=== PATIENT | female | born 1965 | race Caucasian/White ===

== ENCOUNTER 2019-04-14 18:15 | Observation (INO) | payer BC, MEDICARE ==
--- NOTE | 2019-04-14 18:30 | EDM.PDOC ---
ED HPI GENERAL MEDICAL PROBLEM - General Chief Complaint: General Stated Complaint: MED[facility] Time Seen by Provider: 04/14/19 18:24 Source of Information: Reports: EMS History Limitations: Reports: Altered Mental Status - History of Present Illness INITIAL COMMENTS - FREE TEXT/NARRATIVE: 53-year-old female brought in by ambulance because of decreased responsiveness. She is staying at a local hotel with her family, she was sitting by poolside and they went out to wake her up and they could not wake her up. She is not drinking. She does have several sedating medications including Ambien and 2 muscle relaxers, also takes clonazepam. She has chronic renal insufficiency due to atrophic kidneys, and she did have "medication buildup" once in the last year which gave her similar symptoms. She arrives very lethargic, respiratory rate of 7 but with nasal cannula oxygen she is not hypoxic. She was initially hypoxic when found in the chair at the hotel in the low to mid 80s per EMS. Her claims that last time this happened they hydrated her with 2 L of fluid and she got better. Onset: Unknown/Unsure Associated Symptoms: Reports: Confusion, Weakness. Denies: Nausea/Vomiting, Shortness of Breath - Related Data Allergies Allergy/AdvReac Type Severity Reaction Status Date / Time morphine Allergy Drowsiness Verified 04/14/19 19:06 Home Meds: Home Meds Carvedilol 6.25 mg PO BID 04/14/19 [History] ClonazePAM [KlonoPIN] 0.25 - 0.5 mg PO BEDTIME PRN 04/14/19 [History] Cyclobenzaprine [Flexeril] 10 mg PO TID PRN 04/14/19 [History] Escitalopram [Lexapro] 30 mg PO DAILY 04/14/19 [History] Levothyroxine 112 mcg PO DAILY 04/14/19 [History] Omeprazole 20 mg PO DAILY 04/14/19 [History] Ondansetron [Zofran Odt] 8 mg PO DAILY 04/14/19 [History] Zolpidem Tartrate 5 - 10 mg PO BEDTIME PRN 04/14/19 [History] amLODIPine Besylate [Amlodipine Besylate] 10 mg PO DAILY 04/14/19 [History] atorvaSTATin [Lipitor] 20 mg PO DAILY 04/14/19 [History] risperiDONE 1 mg PO BEDTIME 04/14/19 [History] tiZANidine [Zanaflex] 4 mg PO Q8H PRN 04/14/19 [History] Social & Family History - Tobacco Use Smoking Status *Q: Unknown Ever Smoked ED ROS GENERAL - Review of Systems Review Of Systems: Unable To Obtain (Patient herself was unable to give a review of systems, family claims she has been her normal self until today) ED EXAM, GENERAL - Physical Exam Exam: See Below Exam Limited By: Altered Mental Status General Appearance: Lethargic Eye Exam: Bilateral Eye: PERRL Head: Atraumatic Respiratory/Chest: No Respiratory Distress, Lungs Clear Cardiovascular: Regular Rate, Rhythm GI/Abdominal: Soft, Non-Tender Extremities: Pedal Edema (Symmetric 1+ lower extremity edema to the knees) Neurological: Inattentive, Slow to Respond Skin Exam: Warm, Dry Course - Vital Signs Last Recorded V/S: Last Vital Signs Temp 97.9 F 04/14/19 21:59 Pulse 73 04/14/19 21:59 Resp 12 04/14/19 21:59 BP 126/72 04/14/19 21:59 Pulse Ox 96 04/14/19 21:59 - Orders/Labs/Meds Orders: Medication Orders Acetaminophen (Tylenol) 650 mg PO Q4H PRN PRN Reason: Pain (Mild 1-3)/fever Enoxaparin Sodium (Lovenox) 30 mg SUBCUT DAILY [facility] Sodium Chloride (Normal Saline) 1,000 mls @ 125 mls/hr IV ASDIRECTED [facility] Non-Formulary Medication (Amlodipine Besylate [Amlodipine Besylate]) 10 mg PO DAILY [facility] Non-Formulary Medication (Carvedilol [Carvedilol]) 6.25 mg PO BID [facility] Non-Formulary Medication (Levothyroxine [Levothyroxine]) 112 mcg PO DAILY [facility] Ondansetron HCl (Zofran Odt) 4 mg PO Q6H PRN PRN Reason: Nausea able to take PO Labs: Laboratory Tests 04/14/19 04/14/19 04/14/19 Range/Units 18:23 18:32 18:32 WBC 5.3 (4.5-11.0) K/uL RBC 3.48 (3.30-5.50) M/uL Hgb 11.0 L (12.0-15.0) g/dL Hct 33.1 L (36.0-48.0) % MCV 95 (80-98) fL MCH 32 H (27-31) pg MCHC 33 (32-36) % Plt Count 143 L (150-400) K/uL Neut % (Auto) 69 H (36-66) % Lymph % (Auto) 17 L (24-44) % [place] % (Auto) 11 H (2-6) % Eos % (Auto) 2 (2-4) % Baso % (Auto) 0 (0-1) % Sodium 134 L (140-148) mmol/L Potassium 4.8 (3.6-5.2) mmol/L Chloride 101 (100-108) mmol/L Carbon Dioxide 27 (21-32) mmol/L Anion Gap 10.8 (5.0-14.0) mmol/L BUN 17 (7-18) mg/dL Creatinine 1.8 H (0.6-1.0) mg/dL Est Cr Clr Drug Dosing 33.06 mL/min Estimated GFR (MDRD) 29 L (>60) Glucose 93 (74-106) mg/dL Calcium 7.7 L (8.5-10.1) mg/dL Total Bilirubin 0.8 (0.2-1.0) mg/dL AST 25 (15-37) U/L ALT 22 (12-78) U/L Alkaline Phosphatase 84 (46-116) U/L Total Protein 5.2 L (6.4-8.2) g/dL Albumin 2.8 L (3.4-5.0) g/dL Globulin 2.4 (2.3-3.5) g/dL Albumin/Globulin Ratio 1.2 (1.2-2.2) Urine Color Urine Appearance Urine pH (4.5-8.0) Ur Specific [place] (1.008-1.030) Urine Protein (NEGATIVE) mg/dL Urine Glucose (UA) (NEGATIVE) mg/dL Urine Ketones (NEGATIVE) mg/dL Urine Occult Blood (NEGATIVE) Urine Nitrite (NEGATIVE) Urine Bilirubin (NEGATIVE) Urine Urobilinogen (NORMAL) mg/dL Ur Leukocyte Esterase (NEGATIVE) Urine Opiates Screen (NEGATIVE) Ur Oxycodone Screen (NEGATIVE) Urine Methadone Screen (NEGATIVE) Ur Propoxyphene Screen (NEGATIVE) Ur Barbiturates Screen (NEGATIVE) Ur Tricyclics Screen (NEGATIVE) Ur Phencyclidine Scrn (NEGATIVE) Ur Amphetamine Screen (NEGATIVE) U Methamphetamines Scrn (NEGATIVE) Urine MDMA Screen (NEGATIVE) U Benzodiazepines Scrn (NEGATIVE) U Cocaine Metab Screen (NEGATIVE) U Marijuana (THC) Screen (NEGATIVE) Ethyl Alcohol < 3 mg/dL 04/14/19 04/14/19 Range/Units 20:30 20:43 WBC (4.5-11.0) K/uL RBC (3.30-5.50) M/uL Hgb (12.0-15.0) g/dL Hct (36.0-48.0) % MCV (80-98) fL MCH (27-31) pg MCHC (32-36) % Plt Count (150-400) K/uL Neut % (Auto) (36-66) % Lymph % (Auto) (24-44) % [place] % (Auto) (2-6) % Eos % (Auto) (2-4) % Baso % (Auto) (0-1) % Sodium (140-148) mmol/L Potassium (3.6-5.2) mmol/L Chloride (100-108) mmol/L Carbon Dioxide (21-32) mmol/L Anion Gap (5.0-14.0) mmol/L BUN (7-18) mg/dL Creatinine (0.6-1.0) mg/dL Est Cr Clr Drug Dosing mL/min Estimated GFR (MDRD) (>60) Glucose (74-106) mg/dL Calcium (8.5-10.1) mg/dL Total Bilirubin (0.2-1.0) mg/dL AST (15-37) U/L ALT (12-78) U/L Alkaline Phosphatase (46-116) U/L Total Protein (6.4-8.2) g/dL Albumin (3.4-5.0) g/dL Globulin (2.3-3.5) g/dL Albumin/Globulin Ratio (1.2-2.2) Urine Color Yellow Urine Appearance Clear Urine pH 5.0 (4.5-8.0) Ur Specific [place] 1.010 (1.008-1.030) Urine Protein Negative (NEGATIVE) mg/dL Urine Glucose (UA) Normal (NEGATIVE) mg/dL Urine Ketones Negative (NEGATIVE) mg/dL Urine Occult Blood Negative (NEGATIVE) Urine Nitrite Negative (NEGATIVE) Urine Bilirubin Negative (NEGATIVE) Urine Urobilinogen Normal (NORMAL) mg/dL Ur Leukocyte Esterase Negative (NEGATIVE) Urine Opiates Screen Negative (NEGATIVE) Ur Oxycodone Screen Negative (NEGATIVE) Urine Methadone Screen Negative (NEGATIVE) Ur Propoxyphene Screen Negative (NEGATIVE) Ur Barbiturates Screen Negative (NEGATIVE) Ur Tricyclics Screen Presumptive positive H (NEGATIVE) Ur Phencyclidine Scrn Negative (NEGATIVE) Ur Amphetamine Screen Presumptive positive H (NEGATIVE) U Methamphetamines Scrn Negative (NEGATIVE) Urine MDMA Screen Negative (NEGATIVE) U Benzodiazepines Scrn Negative (NEGATIVE) U Cocaine Metab Screen Negative (NEGATIVE) U Marijuana (THC) Screen Negative (NEGATIVE) Ethyl Alcohol mg/dL Meds: Medications Generic Name Dose Route Start Last Admin Trade Name Freq PRN Reason Stop Dose Admin Acetaminophen 650 mg 04/14/19 21:57 Tylenol PO Q4H PRN Pain (Mild 1-3)/fever Enoxaparin Sodium 30 mg 04/14/19 21:57 Lovenox SUBCUT DAILY [facility] Sodium Chloride 1,000 mls @ 125 mls/hr 04/14/19 21:57 Normal Saline IV ASDIRECTED [facility] Non-Formulary Medication 10 mg 04/15/19 09:00 Amlodipine Besylate [Amlodipine Besylate] PO DAILY [facility] Non-Formulary Medication 6.25 mg 04/15/19 09:00 Carvedilol [Carvedilol] PO BID [facility] Non-Formulary Medication 112 mcg 04/15/19 09:00 Levothyroxine [Levothyroxine] PO DAILY [facility] Ondansetron HCl 4 mg 04/14/19 21:57 Zofran Odt PO Q6H PRN Nausea able to take PO Discontinued Medications Generic Name Dose Route Start Last Admin Trade Name Freq PRN Reason Stop Dose Admin Sodium Chloride 1,000 mls @ 1,000 mls/hr 04/14/19 19:15 04/14/19 19:17 Normal Saline IV 1,000 mls/hr ASDIRECTED [facility] Administration - Re-Assessments/Exams Free Text/Narrative Re-Assessment/Exam: 04/14/19 19:55 An IV was started and patient was hydrated with normal saline. CBC, CMP, EtOH were obtained. EtOH was 0, CBC normal, CMP did reveal renal insufficiency with a GFR of only 27. Patient started to become more awake and communicating with the family but still fell asleep very easily. A CT the head was obtained which showed no acute findings. 04/14/19 20:45 Patient continued to slowly improve, after 3 hours was able to ambulate to the bathroom with assistance but when she laid back down she tended to fall asleep and become hypoxic. I felt it would be best to have her in for observation overnight where she can get oxygen support and neuro checks. I consulted Roslyn [place] of the hospitalist service to assess for admission. A UA was obtained for urine drug screen and UA. Departure - Departure Time of Disposition: 21:48 Disposition: Admitted As Inpatient 64 Condition: Fair Clinical Impression: Hypoxia Altered mental status Qualifiers: Altered mental status type: transient alteration of awareness Qualified Code(s) : R40.4 - Transient alteration of awareness - Discharge Information
--- NOTE | 2019-04-14 19:08 | CRLCT ---
INDICATION: Change in mental status TECHNIQUE: CT head without contrast. COMPARISON: None FINDINGS: CSF spaces: Within normal limits for age. Brain parenchyma: The alexander-white differentiation is normal. No sign of mass, hemorrhage, or midline shift. Skull base and calvarium: The visualized paranasal sinuses and mastoid air cells demonstrate no acute or significant findings. The visualized orbits are grossly unremarkable. No skull fractures. IMPRESSION: Unremarkable noncontrast head CT. Dictated by Camron Soto MD @ 04/14/2019 7:07:22 PM Please note that all CT scans at this facility use dose modulation, iterative reconstruction, and/or weight-based dosing when appropriate to reduce radiation dose to as low as reasonably achievable. Dictated by: Camron Soto MD @ 04/14/2019 19:07:28 (Electronically Signed)
[2019-04-14] MEDS ORDERED: Sodium Chloride 0.9% 1,000 ML IV SCH ×3 (19:15→23:30)
--- NOTE | 2019-04-14 21:35 | PCM.HP ---
H&P History of Present Illness - General Date of Service: 04/14/19 Admit Problem/Dx: Admission Diagnosis/Problem Admission Diagnosis/Problem Altered mental status Source of Information: Patient (unable to give history of present illness), Family ( Kash) History Limitations: Reports: Altered Mental Status - History of Present Illness Initial Comments - Free Text/Narative: 53-year-old female brought in by ambulance because of decreased responsiveness. She is staying at a local hotel with her family, she was sitting by pool side and they went out to wake her up and they could not wake her up. She is not drinking. She does have several sedating medications including Ambien and 2 muscle relaxers, also takes clonazepam. She has chronic renal insufficiency due to atrophic kidneys, and she did have "medication buildup" once in the last year which gave her similar symptoms. She arrives very lethargic, respiratory rate of 7 but with nasal cannula oxygen she is not hypoxic. She was initially hypoxic when found in the chair at the hotel in the low to mid 80s per EMS. Her claims that last time this happened they hydrated her with 2 L of fluid and she got better. 04/14/19 19:55 An IV was started and patient was hydrated with normal saline. CBC, CMP, EtOH were obtained. ETOH was 0, CBC normal, CMP did reveal renal insufficiency with a GFR of only 27. Patient started to become more awake and communicating with the family but still fell asleep very easily. A CT the head was obtained which showed no acute findings. 04/14/19 20:45 Patient continued to slowly improve, after 3 hours was able to ambulate to the bathroom with assistance but when she laid back down she tended to fall asleep and become hypoxic. I felt it would be best to have her in for observation overnight where she can get oxygen support and neuro checks. I consulted Roslyn Mckinney of the hospitalist service to assess for admission. A UA was obtained for urine drug screen and UA. 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 she is able to turn her head, but has a lot of pain in spine, and that is why she is on muscle relaxers and other medications. Onset of Symptoms: Reports: Sudden, Gradual Duration of Symptoms: Reports: Hour(s): Location: Reports: Generalized (lethergy) Quality: Reports: Same as Previous Episode (hx of similar incident due to build up of drugs in symtoms due to low functioning kidneys.) Severity: Severe Improves with: Reports: None Worsens with: Reports: None Context: Reports: Other (hx of impaired kidney function. ) Associated Symptoms: Reports: Confusion, Weakness - Related Data Allergies/Adverse Reactions: Allergies Allergy/AdvReac Type Severity Reaction Status Date / Time morphine Allergy Drowsiness Verified 04/14/19 19:06 Home Medications: Home Meds Carvedilol 6.25 mg PO BID 04/14/19 [History] ClonazePAM [KlonoPIN] 0.25 - 0.5 mg PO BEDTIME PRN 04/14/19 [History] Cyclobenzaprine [Flexeril] 10 mg PO TID PRN 04/14/19 [History] Escitalopram [Lexapro] 30 mg PO DAILY 04/14/19 [History] Levothyroxine 112 mcg PO DAILY 04/14/19 [History] Omeprazole 20 mg PO DAILY 04/14/19 [History] Ondansetron [Zofran Odt] 8 mg PO DAILY 04/14/19 [History] Zolpidem Tartrate 5 - 10 mg PO BEDTIME PRN 04/14/19 [History] amLODIPine Besylate [Amlodipine Besylate] 10 mg PO DAILY 04/14/19 [History] atorvaSTATin [Lipitor] 20 mg PO DAILY 04/14/19 [History] risperiDONE 1 mg PO BEDTIME 04/14/19 [History] tiZANidine [Zanaflex] 4 mg PO Q8H PRN 04/14/19 [History] Past Medical History Genitourinary History: Reports: Chronic Renal Insuffiency (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 she is able to turn her head, but has a lot of pain in spine, and that is why she is on muscle relaxers and other medications. 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 she is able to turn her head, but has a lot of pain in spine, and that is why she is on muscle relaxers and other medications.) Endocrine/Metabolic History: Reports: Hypoparathyroidism Oncologic (Cancer) History: Reports: Thyroid - Past Surgical History HEENT Surgical History: Reports: LASIK Female Surgical History: Reports: Section, Oophorectomy Endocrine Surgical History: Reports: Thyroidectomy Social & Family History - Tobacco Use Smoking Status *Q: Unknown Ever Smoked - Living Situation & Occupation Living situation: Reports: Occupation: Retired (lives with Kash in the [facility]. 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 reports her spine is naturally fused from C -2 down. she is able to turn her head, but has a lot of pain in spine, and that is why she is on muscle relaxers and other medications. ) Exam - Exam Exam: See Below - Vital Signs Vital Signs: Last Vital Signs Temp 37.3 C 04/14/19 18:21 Pulse 79 04/14/19 20:47 Resp 16 04/14/19 20:47 BP 103/76 04/14/19 20:47 Pulse Ox 97 04/14/19 20:47 Weight: 82.554 kg - Exam Quality Assessment: Supplemental Oxygen, DVT Prophylaxis General: Obtunded (will awake to name, rambling speech. ) HEENT: Hearing Intact ([place]al clear, tm paulino alexander. ), Nares Patent, Normal Nasal Septum, Pupils Equal, Pupils Reactive, TMs Clear, Other (mouth; tongue is dry.) Neck: Trachea Midline, Other (turns head) Lungs: Clear to Auscultation, Normal Respiratory Effort, Other (cough present) Cardiovascular: Regular Rate, Regular Rhythm, Normal S1, Normal S2 GI/Abdominal Exam: Normal Bowel Sounds, Soft, Non-Tender, No Distention, No Abnormal Bruit, No Mass (Female) Exam: Deferred Rectal (Female) Exam: Deferred Extremities: Normal Range of Motion, No Pedal Edema, Leg Pain (right lower leg with old surgical incision for ORIF with hardware of right tib/fib) Peripheral Pulses: 2+: Radial (L), Radial (R) Skin: Warm, Dry, Intact, Other (no bruising or signs of trauma) Neuro Extensive - Mental Status: Opens Eyes to Commands - Patient Data Lab Results Last 24 hrs: Laboratory Results - last 24 hr 04/14/19 04/14/19 04/14/19 Range/Units 18:23 18:32 18:32 WBC 5.3 (4.5-11.0) K/uL RBC 3.48 (3.30-5.50) M/uL Hgb 11.0 L (12.0-15.0) g/dL Hct 33.1 L (36.0-48.0) % MCV 95 (80-98) fL MCH 32 H (27-31) pg MCHC 33 (32-36) % Plt Count 143 L (150-400) K/uL Neut % (Auto) 69 H (36-66) % Lymph % (Auto) 17 L (24-44) % [place] % (Auto) 11 H (2-6) % Eos % (Auto) 2 (2-4) % Baso % (Auto) 0 (0-1) % Sodium 134 L (140-148) mmol/L Potassium 4.8 (3.6-5.2) mmol/L Chloride 101 (100-108) mmol/L Carbon Dioxide 27 (21-32) mmol/L Anion Gap 10.8 (5.0-14.0) mmol/L BUN 17 (7-18) mg/dL Creatinine 1.8 H (0.6-1.0) mg/dL Est Cr Clr Drug Dosing 33.06 mL/min Estimated GFR (MDRD) 29 L (>60) Glucose 93 (74-106) mg/dL Calcium 7.7 L (8.5-10.1) mg/dL Total Bilirubin 0.8 (0.2-1.0) mg/dL AST 25 (15-37) U/L ALT 22 (12-78) U/L Alkaline Phosphatase 84 (46-116) U/L Total Protein 5.2 L (6.4-8.2) g/dL Albumin 2.8 L (3.4-5.0) g/dL Globulin 2.4 (2.3-3.5) g/dL Albumin/Globulin Ratio 1.2 (1.2-2.2) Urine Color Urine Appearance Urine pH (4.5-8.0) Ur Specific [place] (1.008-1.030) Urine Protein (NEGATIVE) mg/dL Urine Glucose (UA) (NEGATIVE) mg/dL Urine Ketones (NEGATIVE) mg/dL Urine Occult Blood (NEGATIVE) Urine Nitrite (NEGATIVE) Urine Bilirubin (NEGATIVE) Urine Urobilinogen (NORMAL) mg/dL Ur Leukocyte Esterase (NEGATIVE) Urine Opiates Screen (NEGATIVE) Ur Oxycodone Screen (NEGATIVE) Urine Methadone Screen (NEGATIVE) Ur Propoxyphene Screen (NEGATIVE) Ur Barbiturates Screen (NEGATIVE) Ur Tricyclics Screen (NEGATIVE) Ur Phencyclidine Scrn (NEGATIVE) Ur Amphetamine Screen (NEGATIVE) U Methamphetamines Scrn (NEGATIVE) Urine MDMA Screen (NEGATIVE) U Benzodiazepines Scrn (NEGATIVE) U Cocaine Metab Screen (NEGATIVE) U Marijuana (THC) Screen (NEGATIVE) Ethyl Alcohol < 3 mg/dL 04/14/19 04/14/19 Range/Units 20:30 20:43 WBC (4.5-11.0) K/uL RBC (3.30-5.50) M/uL Hgb (12.0-15.0) g/dL Hct (36.0-48.0) % MCV (80-98) fL MCH (27-31) pg MCHC (32-36) % Plt Count (150-400) K/uL Neut % (Auto) (36-66) % Lymph % (Auto) (24-44) % [place] % (Auto) (2-6) % Eos % (Auto) (2-4) % Baso % (Auto) (0-1) % Sodium (140-148) mmol/L Potassium (3.6-5.2) mmol/L Chloride (100-108) mmol/L Carbon Dioxide (21-32) mmol/L Anion Gap (5.0-14.0) mmol/L BUN (7-18) mg/dL Creatinine (0.6-1.0) mg/dL Est Cr Clr Drug Dosing mL/min Estimated GFR (MDRD) (>60) Glucose (74-106) mg/dL Calcium (8.5-10.1) mg/dL Total Bilirubin (0.2-1.0) mg/dL AST (15-37) U/L ALT (12-78) U/L Alkaline Phosphatase (46-116) U/L Total Protein (6.4-8.2) g/dL Albumin (3.4-5.0) g/dL Globulin (2.3-3.5) g/dL Albumin/Globulin Ratio (1.2-2.2) Urine Color Yellow Urine Appearance Clear Urine pH 5.0 (4.5-8.0) Ur Specific [place] 1.010 (1.008-1.030) Urine Protein Negative (NEGATIVE) mg/dL Urine Glucose (UA) Normal (NEGATIVE) mg/dL Urine Ketones Negative (NEGATIVE) mg/dL Urine Occult Blood Negative (NEGATIVE) Urine Nitrite Negative (NEGATIVE) Urine Bilirubin Negative (NEGATIVE) Urine Urobilinogen Normal (NORMAL) mg/dL Ur Leukocyte Esterase Negative (NEGATIVE) Urine Opiates Screen Negative (NEGATIVE) Ur Oxycodone Screen Negative (NEGATIVE) Urine Methadone Screen Negative (NEGATIVE) Ur Propoxyphene Screen Negative (NEGATIVE) Ur Barbiturates Screen Negative (NEGATIVE) Ur Tricyclics Screen Presumptive positive H (NEGATIVE) Ur Phencyclidine Scrn Negative (NEGATIVE) Ur Amphetamine Screen Presumptive positive H (NEGATIVE) U Methamphetamines Scrn Negative (NEGATIVE) Urine MDMA Screen Negative (NEGATIVE) U Benzodiazepines Scrn Negative (NEGATIVE) U Cocaine Metab Screen Negative (NEGATIVE) U Marijuana (THC) Screen Negative (NEGATIVE) Ethyl Alcohol mg/dL Result Diagrams: 04/14/19 18:23 04/14/19 18:32 Problem List Initiated/Reviewed/Updated: Yes Orders Last 24hrs: Active Orders 24 hr Category Date Time Status Patient Status Manage Transfer [TRANSFER] Routine ADT 04/14/19 21:18 Active Sodium Chloride 0.9% [Normal Saline] 1,000 ml Med 04/14/19 19:15 Active IV ASDIRECTED Resuscitation Status Routine Resus Stat 04/14/19 21:19 Ordered Medication Orders Sodium Chloride (Normal Saline) 1,000 mls @ 1,000 mls/hr IV ASDIRECTED [facility] Last Admin: 04/14/19 19:17 Dose: 1,000 mls/hr Assessment/Plan Comment:: ASSESSMENT AND PLAN: 53-year-old female brought in by ambulance because of decreased responsiveness. She is staying at a local hotel with her family, she was sitting by pool side and they went out to wake her up and they could not wake her up. She is not drinking. She does have several sedating medications including Ambien and 2 muscle relaxers, also takes clonazepam. She has chronic renal insufficiency due to atrophic kidneys, and she did have "medication buildup" once in the last year which gave her similar symptoms. She arrives very lethargic, respiratory rate of 7 but with nasal cannula oxygen she is not hypoxic. She was initially hypoxic when found in the chair at the hotel in the low to mid 80s per EMS. Her claims that last time this happened they hydrated her with 2 L of fluid and she got better. 04/14/19 19:55 An IV was started and patient was hydrated with normal saline. CBC, CMP, EtOH were obtained. ETOH was 0, CBC normal, CMP did reveal renal insufficiency with a GFR of only 27. Patient started to become more awake and communicating with the family but still fell asleep very easily. A CT the head was obtained which showed no acute findings. 04/14/19 20:45 Patient continued to slowly improve, after 3 hours was able to ambulate to the bathroom with assistance but when she laid back down she tended to fall asleep and become hypoxic. I felt it would be best to have her in for observation overnight where she can get oxygen support and neuro checks. I consulted Roslyn Mckinney of the hospitalist service to assess for admission. A UA was obtained for urine drug screen and UA. 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 she is able to turn her head, but has a lot of pain in spine, and that is why she is on muscle relaxers and other medications. Will plan to admit OBS to treat symptoms and reassess in am. Altered Mental Status -IV hydration with LR at 125 ml/hr -hold all medications except for HTN and Thyroid medication -neuro checks every 4 hours. -am labs; CBC BMP Thyroid disorder -Synthroid po daily Hypertension -continue medications Maintenance issues -Orders home meds: no routine medication -Nutrition: Regular diet -Wong catheter not indicated at this time -DVT:Lovenox 30mg subcut daily -GI Prophalaxis; Protonix 40mg daily CODE STATUS: Full Admission status: Admit to Observation -I expect this patient to stay less than 24 hours, not to exceed 96 hours for evaluation and management of this problem. Disposition: home with family Primary care provider: Janiya Sanchez. Hospitalist: Dr. Mak Please call Kash at [phone] for any changes in condition.
[2019-04-14] MEDS ORDERED: Ondansetron 4 MG Tab.DIS PO PRN (21:57)
[2019-04-14] MEDS ORDERED: Acetaminophen 325 MG Tab PO PRN (21:57)
[2019-04-14] MEDS ORDERED: Enoxaparin 40 MG/0.4 ML Syringe SUBCUT SCH (22:15)
[2019-04-15] MEDS ORDERED: Levothyroxine 112 MCG Tab PO SCH (07:30)
[2019-04-15] MEDS ORDERED: Carvedilol 6.25 MG Tab PO SCH (09:00)
[2019-04-15] MEDS ORDERED: amLODIPine 10 MG Tab PO SCH (09:00)
--- NOTE | 2019-04-16 14:34 | PCM.DCSUM1 ---
Discharge Summary - Hospital Course Brief History: 53-year-old female with history of chronic pain who presented with decreased level of consciousness. She was admitted for observation with oversedation secondary to medications suspected. Diagnosis: Stroke: No - Discharge Data Discharge Date: 04/15/19 Discharge Disposition: Against Medical Advice 07 Condition: Undetermined - Patient Summary/Data Hospital Course: Dora presented to the emergency room with a decreased level of consciousness. No evidence for infection was found. Oversedation secondary to her home medications was suspected. Admission for observation was recommended. Overnight following admission the patient became more alert and then agitated. She demanded to go home. It was advised that she spend the night and go home in the morning once we were sure that things were clearing up as expected. The patient insisted on going home and left AGAINST MEDICAL ADVICE around 3:00 in the morning. She did leave with her . This patient was admitted by [facility] [place] overnight. The patient left AGAINST MEDICAL ADVICE before I had the chance to evaluate her. - Discharge Plan *PRESCRIPTION DRUG MONITORING PROGRAM REVIEWED*: Not Applicable *COPY OF PRESCRIPTION DRUG MONITORING REPORT IN PATIENT SLICK: Not Applicable Home Medications: Home Meds Carvedilol 6.25 mg PO BID 04/14/19 [History] ClonazePAM [KlonoPIN] 0.25 - 0.5 mg PO BEDTIME PRN 04/14/19 [History] Cyclobenzaprine [Flexeril] 10 mg PO TID PRN 04/14/19 [History] Escitalopram [Lexapro] 30 mg PO DAILY 04/14/19 [History] Levothyroxine 112 mcg PO DAILY 04/14/19 [History] Omeprazole 20 mg PO DAILY 04/14/19 [History] Ondansetron [Zofran Odt] 8 mg PO DAILY 04/14/19 [History] Zolpidem Tartrate 5 - 10 mg PO BEDTIME PRN 04/14/19 [History] amLODIPine Besylate [Amlodipine Besylate] 10 mg PO DAILY 04/14/19 [History] atorvaSTATin [Lipitor] 20 mg PO DAILY 04/14/19 [History] risperiDONE 1 mg PO BEDTIME 04/14/19 [History] tiZANidine [Zanaflex] 4 mg PO Q8H PRN 04/14/19 [History] Forms: ED Department Discharge Referrals: PCP,None [Primary Care Provider] - - Discharge Summary/Plan Comment DC Time >30 min.: No - Patient Data Vitals - Most Recent: Last Vital Signs Temp 37.0 C 04/15/19 01:55 Pulse 75 04/15/19 01:55 Resp 18 04/15/19 01:55 BP 91/53 L 04/15/19 01:55 Pulse Ox 98 04/15/19 01:55 Weight - Most Recent: 80.286 kg Med Orders - Current: Current Medications Discontinued Medications Acetaminophen (Tylenol) 650 mg PO Q4H PRN PRN Reason: Pain (Mild 1-3)/fever Last Admin: 04/15/19 01:55 Dose: 650 mg Amlodipine Besylate (Norvasc) 10 mg PO DAILY [facility] Carvedilol (Coreg) 6.25 mg PO BID [facility] Enoxaparin Sodium (Lovenox) 40 mg SUBCUT DAILY [facility] Last Admin: 04/14/19 22:26 Dose: 40 mg Sodium Chloride (Normal Saline) 1,000 mls @ 1,000 mls/hr IV ASDIRECTED [facility] Last Admin: 04/14/19 19:17 Dose: 1,000 mls/hr Sodium Chloride (Normal Saline) 1,000 mls @ 125 mls/hr IV ASDIRECTED [facility] Last Admin: 04/14/19 22:03 Dose: 125 mls/hr Sodium Chloride (Normal Saline) 1,000 mls @ 999 mls/hr IV ASDIRECTED [facility] Last Admin: 04/14/19 23:29 Dose: 999 mls/hr Levothyroxine Sodium (Levothyroxine) 112 mcg PO ACBREAKFAST [facility] Ondansetron HCl (Zofran Odt) 4 mg PO Q6H PRN PRN Reason: Nausea able to take PO
== END 2019-04-15 02:57 | disposition left against medical advice (07) ==
LOC: JP.ED 18:15 → JP.MS 21:18
PROVIDERS: ADMIT Internal Medicine; ATTEND Internal Medicine
DX: R41.82 Altered mental status, unspecified (principal); I12.9 Hypertensive chronic kidney disease with stage 1 through stage 4 chronic kidney disease, or unspecified chronic kidney disease; N18.9 Chronic kidney disease, unspecified; E20.9 Hypoparathyroidism, unspecified; G89.29 Other chronic pain; Q76.49 Other congenital malformations of spine, not associated with scoliosis; Z88.5 Allergy status to narcotic agent; Z53.21 Procedure and treatment not carried out due to patient leaving prior to being seen by health care provider; Z79.899 Other long term (current) drug therapy
CPT/HCPCS: 36415; 70450; 80053; 80305; 81003; 85025; 94762; 96360; 96361; 96372; 99285; A9270; G0378; G0480; J1650; J7030